=== PATIENT | male | born 1945 | race American Indian/Alaskan Native ===

== ENCOUNTER 2016-12-09 06:20 | Day surgery (SDC) | payer MEDICARE, OTHER ==
[2016-12-09] MEDS ORDERED: ECOTRIN PO ONE (06:53)
[2016-12-09] MEDS ORDERED: NACL 0.9% 500 ML 500 ML IV SCH (07:00)
[2016-12-09 07:22] LABS: Basophils % (Auto) 0.4 % (0.0-1.8); Eosinophils % (Auto) 1.3 % (0.0-4.3); Hematocrit 34.4 % (35.5-45.6); Hemoglobin 11.2 gm/dl (11.8-15.2); Mean Corpuscular HGB Conc 33 % (32-34); Mean Corpuscular Hemoglobin 31 pg (28-32); Mean Corpuscular Volume 95 fl (84-94); Platelet Count 232 K/mm3 (140-440); Red Blood Count 3.64 M/mm3 (3.65-5.03); Red Cell Distribution Width 12.9 % (13.2-15.2); White Blood Count 5.5 K/mm3 (4.5-11.0)
[2016-12-09 07:40] LABS: INR 1.09 (0.87-1.13)
[2016-12-09 07:41] LABS: BUN/Creatinine Ratio 11.33; Calcium 8.9 mg/dL (8.4-10.2); Chloride 105.2 mmol/L (98-107); Potassium 4.7 mmol/L (3.6-5.0)
[2016-12-09] MEDS ORDERED: XYLOCAINE 2% INFILTRATI ONE (10:00)
[2016-12-09] MEDS ORDERED: VERSED ONE (10:01)
[2016-12-09] MEDS: SUBLIMAZE ONE ×2 (10:14→10:27)
[2016-12-09] MEDS ORDERED: VERSED IV ONE ×2 (10:17→10:27)
[2016-12-09] MEDS ORDERED: XYLOCAINE 1% 20 mL INFILTRATI ONE (10:17)
[2016-12-09] MEDS: HEPARIN/NS 5000 UNIT/500ML(CATH LAB) 1,000 ML IR ONE ×2 (10:18→10:27)
[2016-12-09] MEDS: HEPARIN 10,000 UNITS/10 ML ONE ×2 (10:18→10:29)
[2016-12-09] MEDS: NITROGLYCERIN SYRINGE 0 ML ONE ×2 (10:19→10:29)
[2016-12-09] MEDS: CALAN ONE ×2 (10:20→10:29)
--- NOTE | 2016-12-09 10:52 | Short Stay Summary ---
Short Stay Documentation Date of service: 12/09/16 - History H&P: obtained from office - Allergies and Medications Current Medications: Allergies No Known Allergies Allergy (Verified 12/09/16 06:53) Home Medications Medication Instructions Recorded Confirmed Last Taken Type Acyclovir [Zovirax Tab] 400 mg PO QDAY 12/09/16 12/09/16 12/08/16 History Aspirin EC [Aspirin Enteric Coated 81 mg PO QDAY 12/09/16 12/09/16 12/08/16 History TAB] Ezetimibe [Zetia] 10 mg PO QDAY 12/09/16 12/09/16 12/08/16 History Tadalafil [Cialis] 10 mg PO QDAY 12/09/16 12/09/16 12/08/16 22:00 History Valsartan [Diovan] 160 mg PO QDAY 12/09/16 12/09/16 12/08/16 History Verapamil ER [Calan Sr] 240 mg PO QDAY 12/09/16 12/09/16 12/08/16 History Active Medications Sodium Chloride (Nacl 0.9% 500 Ml) 500 mls @ 50 mls/hr IV DIRECT JUANITA Stop: 12/09/16 16:59 Last Admin: 12/09/16 08:15 Dose: 50 mls/hr - Physical exam General appearance: no acute distress Integumentary: no rash HEENT: Atraumatic Lungs: Clear to auscultation Breasts: deferred Heart: Regular rate Gastrointestinal: normal Male Genitourinary: deferred Female Genitourinary: deferred Rectal Exam: deferred Extremities: no ischemia Neurological: Normal gait - Brief post op/procedure progress note Date of procedure: 12/09/16 Pre-op diagnosis: Cardiomyopathy Procedure: [facility] Anesthesia: MAC Findings: See report Surgeon: JULIET KRAMER Estimated blood loss: none Pathology: none Condition: stable - Hospital course Hospital course: Uneventful - Disposition Condition at discharge: Good Disposition: DC-[id number] TO HOME OR SELFCARE Short Stay Discharge Plan Activity: advance as tolerated Weight Bearing Status: Partial Weight Bearing Diet: low fat, low cholesterol, low salt
[2016-12-09 13:37] VITALS: BP 124/75
--- NOTE | 2016-12-09 13:48 | Cardiac Catherization Report ---
LEFT HEART CATHETERIZATION ORDERING PHYSICIAN: Portia Wallace MD INDICATION FOR PROCEDURE: Cardiomyopathy, abnormal myocardial perfusion scan. PROCEDURES PERFORMED: 1. Selective left and right coronary angiography. 2. Left ventriculography. DESCRIPTION OF PROCEDURE: After obtaining written consent, the patient was draped using sterile technique. A 2% lidocaine was injected into the right wrist. A 6[place] vascular sheath was inserted into the right radial artery. A 6[place] JL3.5 catheter was used to selectively engage the left coronary artery. A 6[place] JR4 catheter was used to selectively engage the right coronary artery. A 6-[place] JR4 catheter was used to measure the left ventricular end-diastolic pressure. Left ventriculogram was not performed due to the patient's underlying stage 1 renal insufficiency. Total contrast administered during the procedure was 19 mL. No complications occurred during the procedure. Hemostasis was achieved at the end of the procedure using manual pressure. SPECIMEN REMOVED: None. ESTIMATED BLOOD LOSS: Minimal. FINDINGS: HEMODYNAMICS: The aortic pressure is 141/87. The left ventricular systolic pressure was 144 mmHg and the left ventricular end-diastolic pressure is 35 mmHg. There was no significant gradient across the left ventricular outflow tract. CARDIAC STRUCTURES: The left ventriculogram was not performed due to the patient's underlying stage 1 renal insufficiency. CORONARY ANATOMY: 1. This is a left dominant circulation. 2. The left main is angiographically normal. 3. The LAD has diffuse 10% luminal irregularities. 4. The left circumflex artery has diffuse 10% luminal irregularities. 5. The right coronary artery is a small nondominant vessel. IMPRESSION: 1. Evidence of nonobstructive coronary artery disease with 10% luminal irregularities involving the left coronary circulation. 2. A left ventriculogram was not performed due to the patient's underlying stage 1 renal insufficiency. RECOMMENDATIONS: 1. Continue medical therapy and risk factor modifications. 2. Aggressive IV hydration post coronary angiography. The total amount of contrast volume administered was 19 mL. JOB# [id number] YANN/SHELBI
== END 2016-12-09 13:55 | disposition home or self-care (01) ==
LOC: CATHLABREC 06:20
PROVIDERS: ATTEND Internal Medicine Cardiovascular Disease
DX: I25.10 Atherosclerotic heart disease of native coronary artery without angina pectoris (principal); I42.9 Cardiomyopathy, unspecified; I10 Essential (primary) hypertension; Z79.01 Long term (current) use of anticoagulants
CPT/HCPCS: 36415; 80048; 85025; 85610; 85730; 93005; 93010; 93458; C1894; J1644; J2250; J3010; J7040; Q9967